=== PATIENT | female | born 1985 | race Caucasian/White ===

== ENCOUNTER 2020-02-23 09:45 | Emergency (ER) | payer OTHER ==
[~2020-02-23] VITALS: Ht 162.6 cm; Wt 65.8 kg
[2020-02-23] MEDS ORDERED: ZANAFLEX4 M1 PO (12:26)
[2020-02-23] MEDS ORDERED: KETO10TA2 PO (12:26)
== END 2020-02-23 12:38 | disposition home or self-care (01) ==
LOC: ER 09:45
DX: M54.2 Cervicalgia (principal)